=== PATIENT | male | born 1990 | race Caucasian/White ===

== ENCOUNTER 2019-04-08 13:39 | Inpatient (IN) | payer MEDICAID ==
[2019-04-08 15:08] LABS: BASOPHILS 0.1 % (0-2); EOSINOPHILS 1.1 % (0-7); HEMATOCRIT 49.4 % (42.0-54.0); HEMOGLOBIN 17.5 g/dL (13.5-17.5); IMMATURE GRANULOCYTES 0.3 % (0-5); MCH 32.1 pg (26.0-34.0); MCHC 35.4 g/dL (31.0-37.0); MCV 90.5 fL (80.0-100.0); MEAN PLATELET VOLUME 8.7 fL (7.4-10.4); MONOCYTES 8.1 % (2-11); NEUTROPHILS 57.4 % (40-80); PLATELET COUNT 208 10x3/uL (130-400); RBC 5.46 10x6/uL (4.20-6.10); RDW 12.4 % (11.5-14.5); WBC 7.5 10x3/uL (4.8-10.8)
[2019-04-08 15:19] LABS: CALC OSMOLALITY 277 mosm/kg (275-300); CALCIUM 9.3 mg/dL (8.5-10.1); CARBON DIOXIDE 29.4 mmol/L (21.0-32.0); CHLORIDE - SERUM 103 mmol/L (98-107); GLUCOSE 84 mg/dL (74-106); SODIUM 141 mmol/L (136-145); UREA NITROGEN 7 mg/dL (7-18); eGFR NON AFRICAN AMERICAN > 90 mL/min (90-120)
[2019-04-08 15:20] LABS: APTT 28.2 SECONDS (22.8-39.4); INR 0.94 (0.85-1.17); PROTIME 12.6 SECONDS (11.6-15.0)
[2019-04-08 15:35] LABS: ALBUMIN 4.5 g/dL (3.4-5.0); ALKALINE PHOSPHATASE 54 U/L (30-120); ALT (SGPT) 151 U/L (10-68); BILIRUBIN - TOTAL 0.79 mg/dL (0.2-1.3); CKMB 8.4 U/L (0.0-3.6); MAGNESIUM - SERUM 2.2 mg/dL (1.8-2.4); PROTEIN - SERUM 8.2 g/dL (6.4-8.2); THYROID STIMULATING HORMONE 1.27 uIU/mL (0.36-3.74); TROPONIN-I < 0.017 ng/mL (0.000-0.060)
[2019-04-08 15:36] LABS: CREATINE KINASE 6459 UL (21-232)
[2019-04-08 16:14] LABS: BILIRUBIN NEGATIVE (NEGATIVE); GLUCOSE NEGATIVE (NEGATIVE); KETONE NEGATIVE (NEGATIVE); NITRITE NEGATIVE (NEGATIVE); SPECIFIC GRAVITY 1.005 (1.005-1.020); UROBILINOGEN NORMAL (NORMAL)
[2019-04-08 16:26] LABS: UDS - AMPHET NEGATIVE QUAL (NEGATIVE); UDS - BARB NEGATIVE QUAL (NEGATIVE); UDS - BENZO NEGATIVE QUAL (NEGATIVE); UDS - COCAINE NEGATIVE QUAL (NEGATIVE); UDS - OPIATE NEGATIVE QUAL (NEGATIVE); UDS - PCP NEGATIVE QUAL (NEGATIVE); UDS - THC NEGATIVE QUAL (NEGATIVE)
--- NOTE | 2019-04-08 18:46 | NUR ---
CAME TO THE ER TODAY. PATIENT REPORTS FEELING BAD, STATES HE IS WORRIED ABOUT HEP C, HE STATES THAT HE IS FORGETFUL. HE SAYS HE IS HEARING A LOUD RINGING IN HIS EARS. REPORTS NO PAIN. SATES HE IS CONFUSED LATELY.
--- NOTE | 2019-04-08 19:15 | NUR ---
REPORT RECEIVED. BEDSIDE SHIFT REPORT COMPLETE. PT RESTING IN BED RR EVEN AND UNLABORED. IV INFUSING PER ORDER. PT C/O THAT HE HAS BEEN HAVING INCREASED CONFUSION X12 DAYS AND THAT HIS SHORT TERM MEMORY HAS BEEN IMACTED. HE BECAME FORGETFUL DURING OUR CONVERSATION ABOUT WHAT WE WERE TALKING ABOUT. DENIES DRUG USE X 5 MONTHS. C/O BUZZING IN EARS. EDUCATED USE OF CALLL LIGHT FOR ASSISTANCE AND ENCOURAGED FLUIDS. FRIEND AT BEDSIDE. WILL CTM.
[2019-04-08 20:30] VITALS: BP 140/91
[2019-04-09 00:30] VITALS: BP 131/67
[2019-04-09 04:30] VITALS: BP 117/74
[2019-04-09 05:56] LABS: BASOPHILS 0.1 % (0-2); EOSINOPHILS 2.3 % (0-7); HEMOGLOBIN 16.1 g/dL (13.5-17.5); IMMATURE GRANULOCYTES 0.1 % (0-5); LYMPHOCYTES 44.1 % (15-50); MCH 31.7 pg (26.0-34.0); MCV 90.6 fL (80.0-100.0); MEAN PLATELET VOLUME 8.7 fL (7.4-10.4); MONOCYTES 7.4 % (2-11); PLATELET COUNT 208 10x3/uL (130-400); RBC 5.08 10x6/uL (4.20-6.10); RDW 12.2 % (11.5-14.5); WBC 7.7 10x3/uL (4.8-10.8)
[2019-04-09 06:45] LABS: ALKALINE PHOSPHATASE 39 U/L (30-120); ALT (SGPT) 117 U/L (10-68); BILIRUBIN - TOTAL 0.76 mg/dL (0.2-1.3); CALC OSMOLALITY 275 mosm/kg (275-300); CALCIUM 8.3 mg/dL (8.5-10.1); CARBON DIOXIDE 26.4 mmol/L (21.0-32.0); CHLORIDE - SERUM 107 mmol/L (98-107); GLUCOSE 88 mg/dL (74-106); POTASSIUM - SERUM 3.7 mmol/L (3.5-5.1); PROTEIN - SERUM 6.3 g/dL (6.4-8.2); SODIUM 140 mmol/L (136-145); UREA NITROGEN 8 mg/dL (7-18); eGFR NON AFRICAN AMERICAN > 90 mL/min (90-120)
[2019-04-09 06:48] LABS: ALBUMIN 3.3 g/dL (3.4-5.0); CREATINE KINASE 3127 UL (21-232)
[2019-04-09 06:49] LABS: CKMB 3.4 U/L (0.0-3.6)
[2019-04-09 08:43] VITALS: BP 123/78
[2019-04-09 11:46] VITALS: BP 126/81
--- NOTE | 2019-04-09 12:32 | NUR ---
RECEIVED PT TO ROOM. NO S/SX OF DISTRESS, PT HAD LUNCH TRAY WITH HIM, BED IN LOWEST POSITION, CL IN REACH. ASSUME PT CARE
[2019-04-09 16:01] VITALS: BP 122/74
--- NOTE | 2019-04-09 18:01 | NUR ---
PT AND PATIENT GUESTS INQUIRED ON WHEN DR WOULD BE BY TO SEE HIM. PT STATES HE FEELS LIKE HIS BLOOD IS BURNING AND IT JUST SHOOTS TO HIS HEAD. PT STATED HE HAD THIS SAME FEELING BEFORE HE FOUND OUT HE HAD HEPC. ADVISED PT WE ARE DOING OUR BEST TO FIND ANSWERS FOR HIM AND DOCTOR WILL BE IN SOON HE CAN. NO OTHER NEEDS AT THIS TIME CONTINUE WITH PLAN OF CARE
--- NOTE | 2019-04-09 19:30 | NUR ---
PT VERY ANXIOUS ABOUT FEELING IF BLOOD IS RUSHING TO HIS HEAD AND BURNING, STATES HE FEEL LIKE HIS BRAIN IS NOT GETTING ENOUGH OXYGEN AND HIS NEURONS ARE FIRING EVERYWHERE. PT VITALS ARE STABLE. HE IS RESTLESS AND CANNOT LIE STILL IN THE BED. FRIEND AT BEDSIDE. PT WANTING TO SPEAK WITH DR OR NURSE PRACTITIONER. PAGED KATHERYN RODRIGUEZ APN. WILL CTM
[2019-04-09 20:00] VITALS: BP 152/74
[2019-04-10] VITALS: BP 150/86
[2019-04-10 04:00] VITALS: BP 120/65
[2019-04-10 06:31] LABS: BASOPHILS 0.1 % (0-2); EOSINOPHILS 2.2 % (0-7); HEMATOCRIT 43.8 % (42.0-54.0); HEMOGLOBIN 15.3 g/dL (13.5-17.5); IMMATURE GRANULOCYTES 0.1 % (0-5); LYMPHOCYTES 40.8 % (15-50); MCH 31.6 pg (26.0-34.0); MCHC 34.9 g/dL (31.0-37.0); MCV 90.5 fL (80.0-100.0); MEAN PLATELET VOLUME 8.8 fL (7.4-10.4); MONOCYTES 9.1 % (2-11); NEUTROPHILS 47.7 % (40-80); PLATELET COUNT 194 10x3/uL (130-400); RBC 4.84 10x6/uL (4.20-6.10); RDW 12.4 % (11.5-14.5); WBC 7.1 10x3/uL (4.8-10.8)
[2019-04-10 07:00] LABS: ALBUMIN 3.2 g/dL (3.4-5.0); ALKALINE PHOSPHATASE 38 U/L (30-120); ALT (SGPT) 101 U/L (10-68); BILIRUBIN - TOTAL 0.68 mg/dL (0.2-1.3); CALC OSMOLALITY 279 mosm/kg (275-300); CALCIUM 8.4 mg/dL (8.5-10.1); CARBON DIOXIDE 25.2 mmol/L (21.0-32.0); CHLORIDE - SERUM 109 mmol/L (98-107); CKMB 0.9 U/L (0.0-3.6); CREATININE - SERUM 0.9 mg/dL (0.6-1.3); GLUCOSE 89 mg/dL (74-106); PROTEIN - SERUM 5.9 g/dL (6.4-8.2); SODIUM 142 mmol/L (136-145); UREA NITROGEN 8 mg/dL (7-18); eGFR NON AFRICAN AMERICAN > 90 mL/min (90-120)
[2019-04-10 07:14] LABS: CREATINE KINASE 1169 UL (21-232)
--- NOTE | 2019-04-10 08:00 | NUR ---
PT RESTING IN BED WITH EYES CLOSED. FRIEND AT BEDSIDE VOICES PT HAS JUST GONE TO SLEEP. PT ROUSES STAFF ENTER ROOMS, BUT REMAINS ASLEEP. IV TO LEFT AC WITH NS @ 250ML/HR INFUSING VIA PUMP. SITE WITHOUT REDNESS OR EDEMA. CL WITHIN REACH. ENCOURGED FAMILY/FRIEND TO CALL WITH NEEDS. CONTINUE POC
[2019-04-10 09:11] VITALS: BP 118/59
[2019-04-10 13:31] VITALS: BP 128/74
[2019-04-10 18:08] VITALS: BP 114/97
[2019-04-10 20:00] VITALS: BP 121/69
--- NOTE | 2019-04-10 20:20 | NUR ---
LYING IN BED. ALERT AND ORIENTED X4. RESP EVEN AND NONLABORED. DENIES PAIN. REPORTS CONTINUED "NOISE" IN LT EAR. NS @ 250 ML/HR INFUSING IN LT AC. NO DISTRESS. AMBULATORY. SR ELEVATED X2. CL IN REACH.
[2019-04-11] VITALS: BP 148/59
--- NOTE | 2019-04-11 03:38 | NUR ---
HAS RESTED WELL SO FAR THIS SHIFT. VISITOR AT BEDSIDE. CL IN REACH. NO DISTRESS.
[2019-04-11 04:00] VITALS: BP 132/60
[2019-04-11 05:11] LABS: BASOPHILS 0.3 % (0-2); EOSINOPHILS 2.7 % (0-7); HEMATOCRIT 42.1 % (42.0-54.0); HEMOGLOBIN 14.5 g/dL (13.5-17.5); IMMATURE GRANULOCYTES 0.1 % (0-5); MCH 31.3 pg (26.0-34.0); MCHC 34.4 g/dL (31.0-37.0); MCV 90.9 fL (80.0-100.0); MEAN PLATELET VOLUME 8.7 fL (7.4-10.4); MONOCYTES 8.7 % (2-11); NEUTROPHILS 43.2 % (40-80); PLATELET COUNT 178 10x3/uL (130-400); RBC 4.63 10x6/uL (4.20-6.10); RDW 12.4 % (11.5-14.5)
[2019-04-11 05:54] LABS: % SATURATION 16 % (15-55); IRON 49 ug/dl (35-150); TOTAL IRON BIND CAPACITY 295 ug/dl (260-445); UNSAT IRON BIND CAPACITY 246 ug/dl (150-375)
[2019-04-11 06:06] LABS: ALBUMIN 3.1 g/dL (3.4-5.0); ALKALINE PHOSPHATASE 38 U/L (30-120); ALT (SGPT) 88 U/L (10-68); BILIRUBIN - TOTAL 0.23 mg/dL (0.2-1.3); CALCIUM 8.2 mg/dL (8.5-10.1); CARBON DIOXIDE 26.7 mmol/L (21.0-32.0); CHLORIDE - SERUM 111 mmol/L (98-107); FERRITIN 64 ng/mL (3-244); GLUCOSE 89 mg/dL (74-106); POTASSIUM - SERUM 4.1 mmol/L (3.5-5.1); PROTEIN - SERUM 6.1 g/dL (6.4-8.2); SODIUM 143 mmol/L (136-145); eGFR NON AFRICAN AMERICAN > 90 mL/min (90-120)
[2019-04-11 06:10] LABS: CALC OSMOLALITY 283 mosm/kg (275-300); UREA NITROGEN 13 mg/dL (7-18)
--- NOTE | 2019-04-11 08:00 | NUR ---
PATIENT IN BED WITH NO COMPLAINTS OR SIGNS OF DISTRESS. IV INTACT. CALL LIGHT WITHIN REACH.
[2019-04-11 09:53] VITALS: BP 132/73
--- NOTE | 2019-04-11 10:19 | MORECARE ---
CASE MANAGEMENT DISCHARGE SUMMARY PATIENT: JULISA DOE UNIT: [id number] ADM DATE: 04/08/19 AGE: 29 : 88 SEX: M ROOM/BED: D.2212 AUTHOR: MATI HUANG PHYSICIAN: REFERRING PHYSICIAN: JADA CANALES MD DATE OF SERVICE: 04/11/19 Discharge Plan Patient Name: [facility] [facility] 1990 Planned Disposition: Home or Self Care Anticipated Discharge Date: Discharge Date: Expected LOS: Initial Reviewer: [email or web address] Initial Review Date: 04/08/2019 Generated: 04/11/19 11:19 am DCPIA - Discharge Planning Initial Assessment Updated by [email or web address]: Emiliana Caceres on 04/11/19 10:18 am * Is the patient Alert and Oriented? Yes * How many steps to enter\exit or inside your home? 1 flight * PCP CRYSTAL SANTIAGO * Pharmacy [facility] [address] * Preadmission Environment [facility] * Facility Name [facility] * ADLs Independent * Equipment None * List name and contact numbers for known caregivers / representatives who currently or will assist patient after discharge: RAMAN SPENCE [phone] * Verbal permission to speak to the caregivers and representatives has been obtained from the patient. N/A * Community resources currently utilized Other * Please name any agencies selected above. [facility] * Additional services required to return to the preadmission environment? No * Can the patient safely return to the preadmission environment? Yes * Has this patient been hospitalized within the prior 30 days at any hospital? No Patient Name: JULISA DOE Page [phone] at 1019 All edits/amendments must be made on the electronic document DICTATION DATE: 04/11/19 1019 LEARNING CONSULTANT: BLAS 04/11/19 1019 RPT#: [id number] DC DATE: STATUS: ADM IN [facility] [address] [place] [address] END OF REPORT
--- NOTE | 2019-04-11 10:27 | MORECARE ---
CASE MANAGEMENT DISCHARGE SUMMARY PATIENT: JULISA DOE UNIT: [id number] ADM DATE: 04/08/19 AGE: 29 : 88 SEX: M ROOM/BED: D.2212 AUTHOR: SALDOC PHYSICIAN: REFERRING PHYSICIAN: JADA CANALES MD DATE OF SERVICE: 04/11/19 Discharge Plan Patient Name: JULISA DOE Facility: [facility]:[place] : 1990 Planned Disposition: Home or Self Care Anticipated Discharge Date: Discharge Date: Expected LOS: Initial Reviewer: [email or web address] Initial Review Date: 04/08/2019 Generated: 04/11/19 11:26 am Comments DCP- Discharge Planning Updated by [email or web address]: Emiliana Caceres on 04/11/19 9:[address] Patient Name: JULISA DOE Admission Status: ER Accout number: [id number] Admission Date: 04-08-2019 : 1990 Admission Diagnosis: Attending: JADA CANALES Current LOS: 3 Anticipated DC Date: Planned Disposition: Home or Self Care Primary Insurance: MEDICAID [place] PENDING Discharge Planning Comments: CM met with patient to complete initial dc planning assessment. CM educated patient on the CM role and verbal consent given by patient to complete assessment. Patient is currently living with a friend and a home for rehab? At discharge patient plans to return there and feels this is a safe discharge. 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 CM discussed availability of home health, rehab services, and medical equipment. He did not feel like he needed anything. He is concerned about the feeling in his head "he is in a fog" He said that he has had 4 different insurances over the past 18 months to 2 years where he has tried to get the hep c medicine, but with all the insurance changes he has been unsuccessful. He said 4 months ago he was homeless and stopped taking his Strattera (50mg BID ) all the sudden and has not been back on his ADHD medication. He feels like he did when he was 13 years old and had an episode where his ammonia was high. CM will continue to follow and will assist as needed with dc plans/needs. Bulk Delivery Driver: Emiliana Caceres DCPIA - Discharge Planning Initial Assessment Updated by [email or web address]: Emiliana Caceres on 04/11/19 10:18 am * Is the patient Alert and Oriented? Yes * How many steps to enter\\exit or inside your home? 1 flight * PCP CRYSTAL SANTIAGO * Pharmacy [facility] [address] * Preadmission Environment [facility] * Facility Name [facility] * ADLs Independent * Equipment None * List name and contact numbers for known caregivers / representatives who currently or will assist patient after discharge: RAMAN SPENCE [phone] * Verbal permission to speak to the caregivers and representatives has been obtained from the patient. N/A * Community resources currently utilized Other * Please name any agencies selected above. [facility] * Additional services required to return to the preadmission environment? No * Can the patient safely return to the preadmission environment? Yes * Has this patient been hospitalized within the prior 30 days at any hospital? No Last DP export: 04/11/19 9:19 am Patient Name: JULISA DOE Page [id number] at 1027 All edits/amendments must be made on the electronic document DICTATION DATE: 04/11/19 1026 HYBRID TECHNOLOGIST: BLAS 04/11/19 1026 RPT#: [id number] DC DATE: STATUS: ADM IN [facility] [address] [place] [address] END OF REPORT
[2019-04-11 10:54] LABS: CKMB 0.5 U/L (0.0-3.6); CREATINE KINASE 523 UL (21-232)
--- NOTE | 2019-04-11 12:40 | NUR ---
PATIENT IV REMOVED BY STUDENTS.
--- NOTE | 2019-04-11 13:00 | NUR ---
PATIENT RECIEVED DC INSTRUCTIONS. VERBALIZED UNDERSTANDING. EXPLAINED TO MAKE SURE TO DRINK PLENTY OF WATER AND LIQUIDS EVERYDAY. STATED HE DRINKS AT LEAST A GALLON A DAY. EXPLAINED ALSO TO TRY TO DRINK SOME GATERADE FOR EXTRA ELECTROLYTES. VERBALIZED UNDERSTANDING. NO QUESTIONS AT THIS TIME. REFUSED WC FOR DC. GOING TO FINISH EATING THEN DC. CALL LIGHT WITHIN REACH. FAMILY AT SIDE.
--- NOTE | 2019-04-12 12:35 | MORECARE ---
CASE MANAGEMENT DISCHARGE SUMMARY PATIENT: JULISA DOE UNIT: [id number] ADM DATE: 04/08/19 AGE: 29 : 88 SEX: M ROOM/BED: D.2212 AUTHOR: SALDOC PHYSICIAN: REFERRING PHYSICIAN: JADA CANALES MD DATE OF SERVICE: 04/12/19 Discharge Plan Patient Name: JULISA DOE Facility: [facility]:[place] : 1990 Planned Disposition: Home or Self Care Anticipated Discharge Date: Discharge Date: 04/11/2019 Expected LOS: 0 Initial Reviewer: [email or web address] Initial Review Date: 04/08/2019 Generated: 04/12/19 1:34 pm Comments DCP- Discharge Planning Updated by [email or web address]: Emiliana Caceres on 04/11/19 9:[address] Patient Name: JULISA DOE Admission Status: ER Accout number: [id number] Admission Date: 04-08-2019 : 1990 Admission Diagnosis: Attending: JADA CANALES Current LOS: 3 Anticipated DC Date: Planned Disposition: Home or Self Care Primary Insurance: MEDICAID [place] PENDING Discharge Planning Comments: CM met with patient to complete initial dc planning assessment. CM educated patient on the CM role and verbal consent given by patient to complete assessment. Patient is currently living with a friend and a home for rehab? At discharge patient plans to return there and feels this is a safe discharge. 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 CM discussed availability of home health, rehab services, and medical equipment. He did not feel like he needed anything. He is concerned about the feeling in his head "he is in a fog" He said that he has had 4 different insurances over the past 18 months to 2 years where he has tried to get the hep c medicine, but with all the insurance changes he has been unsuccessful. He said 4 months ago he was homeless and stopped taking his Strattera (50mg BID ) all the sudden and has not been back on his ADHD medication. He feels like he did when he was 13 years old and had an episode where his ammonia was high. CM will continue to follow and will assist as needed with dc plans/needs. Reservation Sales Agent: Emiliana Caceres DCPIA - Discharge Planning Initial Assessment Updated by [email or web address]: Emiliana Caceres on 04/11/19 10:18 am * Is the patient Alert and Oriented? Yes * How many steps to enter\\exit or inside your home? 1 flight * PCP CRYSTAL SANTIAGO * Pharmacy [facility] [address] * Preadmission Environment [facility] * Facility Name [facility] * ADLs Independent * Equipment None * List name and contact numbers for known caregivers / representatives who currently or will assist patient after discharge: RAMAN SPENCE [phone] * Verbal permission to speak to the caregivers and representatives has been obtained from the patient. N/A * Community resources currently utilized Other * Please name any agencies selected above. [facility] * Additional services required to return to the preadmission environment? No * Can the patient safely return to the preadmission environment? Yes * Has this patient been hospitalized within the prior 30 days at any hospital? No Last DP export: 04/11/19 9:27 am Patient Name: JULISA DOE Page 98180 at 1235 All edits/amendments must be made on the electronic document DICTATION DATE: 04/12/19 1234 TAKE AWAY WORKER: BLAS 04/12/19 1234 RPT#: [id number] DC DATE:04/11/19 STATUS: DIS IN [facility] [address] [place] [address] END OF REPORT
== END 2019-04-11 13:15 | disposition home or self-care (01) | DRG 558 ==
LOC: D.ER 13:39 → D.M2 17:16 → D.MS 17:16
PROVIDERS: Emergency Medicine; Family Medicine; ADMIT Internal Medicine Nephrology; ATTEND Internal Medicine Nephrology
DX: M62.82 Rhabdomyolysis (principal); B19.20 Unspecified viral hepatitis C without hepatic coma